=== PATIENT | female | born 1995 | race Caucasian/White ===

== ENCOUNTER 2017-08-05 23:49 | Emergency (ER) | payer SELFPAY ==
[~2017-08-05] VITALS: Ht 154.9 cm; Wt 51.5 kg
[~2017-08-05 23:49] MED LIST: Z.0.NO CURRENT MEDS
[2017-08-06 00:08] VITALS: BP 132/63; PULSE 107; RESP 18; TEMP 99.1; O2SAT 99
[2017-08-06 02:27] VITALS: BP 133/64; PULSE 81; RESP 20; O2SAT 96
[2017-08-06] MEDS ORDERED: SODIUM CHLOR 0.9% 1000 ML INJ 1,000 ML IV ONE (02:30)
[2017-08-06] MEDS ORDERED: ONDANSETRON HCL 4 MG/2 ML VIAL IV PUSH ONE (02:30)
[2017-08-06 02:52] LABS: AUTOMATED NEUTROPHIL # 6.6 TH/MM3 (1.8-7.7); BASOPHIL % 0.1 % (0.0-2.0); HEMATOCRIT 40.2 % (35.0-46.0); HEMOGLOBIN 14.1 GM/DL (11.6-15.3); LYMPH % 4.2 % (9.0-44.0); LYMPHOCYTE # 0.3 TH/MM3 (1.0-4.8); MEAN CELL VOLUME 90.1 FL (80.0-100.0); MEAN CORPUSCULAR HEMOGLOBIN 31.5 PG (27.0-34.0); MEAN PLATELET VOLUME 9.2 FL (7.0-11.0); MONO % 6.4 % (0.0-8.0); MONOCYTE # 0.5 TH/MM3 (0-0.9); NEUT % 89.3 % (16.0-70.0); PLATELET COUNT 242 TH/MM3 (150-450); RED BLOOD COUNT 4.47 MIL/MM3 (4.00-5.30); RED CELL DISTRIBUTION WIDTH 12.2 % (11.6-17.2); WHITE BLOOD COUNT 7.4 TH/MM3 (4.0-11.0)
[2017-08-06 03:08] LABS: ALBUMIN 4.3 GM/DL (3.4-5.0); ALT (GPT) 27 U/L (9-42); AST (GOT) 28 U/L (16-38); BLOOD UREA NITROGEN 7 MG/DL (7-18); CALCIUM 9.4 MG/DL (8.5-10.1); CHLORIDE 105 MEQ/L (98-107); GLOMERULAR FILTRATION RATE 81 ML/MIN (>89); GLUCOSE,RANDOM 112 MG/DL (74-106); SODIUM (NA) 136 MEQ/L (136-145)
[2017-08-06 03:10] LABS: ALKALINE PHOSPHATASE 72 U/L (45-117); TOTAL BILIRUBIN ADULT 0.4 MG/DL (0.2-1.0); TOTAL PROTEIN 8.6 GM/DL (6.4-8.2)
[2017-08-06] MEDS ORDERED: KETOROLAC TROMETHAMINE 30 MG/ML (IVP) VIAL IV PUSH ONE (03:15)
[2017-08-06] MEDS ORDERED: OSELTAMIVIR PHOSPHATE 75 MG CAP PO ONE (03:15)
[2017-08-06] MEDS ORDERED: OSEL75 PO (03:49)
[2017-08-06] MEDS ORDERED: ZOFR4TAB3 SL (03:49)
--- NOTE | 2017-08-06 03:49 | PD ---
HPI . GI complaint Chief Complaint: GI Complaint Time Seen by Provider: 02:22 Travel History International Travel<30 days: No Contact w/Intl Traveler<30days: No Traveled to known affect area: No History of Present Illness HPI 21-year-old female presents with having mild nonproductive cough, feeling fevers unquantified, and nausea vomiting all day today. Patient is not tolerating p.o. since earlier. Denies rashes stiff neck visual changes seizures. Patient thinks she has the flu PFSH Past Medical History Narrative Medical No significant past medical history Medical History: Denies Significant Hx Immunizations Current: Yes ?: Not Past Surgical History Surgical History: No Previous Surgery Social History Alcohol Use: No Tobacco Use: No Substance Use: No Allergies-Medications (Allergen,Severity, Reaction): Coded Allergies: Sulfa (Sulfonamide Antibiotics) (Verified Allergy, Intermediate, Rash, 08/06) No Known Allergies (Verified Allergy, Mild, 08/06/17) Reported Meds & Prescriptions Reported Meds & Active Scripts Active No Active Prescriptions or Reported Medications Narrative Medication Allergies and medications reviewed Review of Systems Except as stated in HPI: all other systems reviewed are Neg General / Constitutional: Positive: Fever, Chills Eyes: No: Visual changes HENT: No: Headaches, Vertigo, Sore Throat Cardiovascular: No: Chest Pain or Discomfort, Palpitations Respiratory: Positive: Cough, No: Shortness of Breath, Wheezing, Sneezing, Orthopnea, Hemoptysis, Stridor, Night Sweats, Pleuritic Pain Gastrointestinal: Positive: Nausea, Vomiting, No: Diarrhea, Abdominal Pain Genitourinary: No: Urgency, Frequency, Dysuria, Hematuria, Discharge, Vaginal Bleeding Musculoskeletal: No: Pain Skin: No Rash Neurologic: No: Weakness Psychiatric: No: Depression Endocrine: No: Polydipsia Hematologic/Lymphatic: No: Easy Bruising Physical Exam Narrative GENERAL: Awake alert, oriented 3, ill-appearing but in no acute distress. Vital signs afebrile normal and stable SKIN: Warm and dry. Color is sallow no diaphoresis sinus or pallor HEAD: Atraumatic. Normocephalic. EYES: Pupils equal and round. No scleral icterus. No injection or drainage. ENT: No nasal bleeding or discharge. Mucous membranes pink and moist. Lips dry NECK: Trachea midline. No JVD. Supple nontender full range of motion CARDIOVASCULAR: Regular rate and rhythm. S1-S2 no murmurs rubs gallops RESPIRATORY: No accessory muscle use. Clear to auscultation. Breath sounds equal bilaterally. GASTROINTESTINAL: Abdomen soft, non-tender, nondistended. Hepatic and splenic margins not palpable. MUSCULOSKELETAL: Extremities without clubbing, cyanosis, or edema. No obvious deformities. NEUROLOGICAL: Awake and alert. No obvious focal deficits PSYCHIATRIC: Appropriate mood and affect; insight and judgment normal. Data Data Last Documented VS Vital Signs Date Time Temp Pulse Resp B/P (MAP) Pulse Ox O2 Delivery O2 Flow Rate FiO2 08/06/17 02:27 81 20 133/64 (87) 96 Room Air 08/06/17 00:08 99.1 Orders Orders Influenzae A/B Antigen (08/06/17 02:23) Iv Access Insert/Monitor (08/06/17 02:25) Sodium Chlor 0.9% 1000 Ml Inj (Ns 1000 M (08/06/17 02:30) Ondansetron Inj (Zofran Inj) (08/06/17 02:30) Complete Blood Count With Diff (08/06/17 02:30) Comprehensive Metabolic Panel (08/06/17 02:30) Ed Urine Pregnancytest Poc (08/06/17 02:30) Ketorolac Inj (Toradol Inj) (08/06/17 03:15) Oseltamivir (Tamiflu) (08/06/17 03:15) Labs Laboratory Tests Test 08/06/17 02:30 White Blood Count 7.4 TH/MM3 Red Blood Count 4.47 MIL/MM3 Hemoglobin 14.1 GM/DL Hematocrit 40.2 % Mean Corpuscular Volume 90.1 FL Mean Corpuscular Hemoglobin 31.5 PG Mean Corpuscular Hemoglobin Concent 35.0 % Red Cell Distribution Width 12.2 % Platelet Count 242 TH/MM3 Mean Platelet Volume 9.2 FL Neutrophils (%) (Auto) 89.3 % Lymphocytes (%) (Auto) 4.2 % Monocytes (%) (Auto) 6.4 % Eosinophils (%) (Auto) 0.0 % Basophils (%) (Auto) 0.1 % Neutrophils # (Auto) 6.6 TH/MM3 Lymphocytes # (Auto) 0.3 TH/MM3 Monocytes # (Auto) 0.5 TH/MM3 Eosinophils # (Auto) 0.0 TH/MM3 Basophils # (Auto) 0.0 TH/MM3 CBC Comment DIFF FINAL Differential Comment Blood Urea Nitrogen 7 MG/DL Creatinine 0.90 MG/DL Random Glucose 112 MG/DL Total Protein 8.6 GM/DL Albumin 4.3 GM/DL Calcium Level 9.4 MG/DL Alkaline Phosphatase 72 U/L Aspartate Amino Transf (AST/SGOT) 28 U/L Alanine Aminotransferase (ALT/SGPT) 27 U/L Total Bilirubin 0.4 MG/DL Sodium Level 136 MEQ/L Potassium Level 3.4 MEQ/L Chloride Level 105 MEQ/L Carbon Dioxide Level 15.0 MEQ/L Anion Gap 16 MEQ/L Estimat Glomerular Filtration Rate 81 ML/MIN [facility] Medical Decision Making Medical Screen Exam Complete: Yes Emergency Medical Condition: Yes Medical Record Reviewed: Yes Differential Diagnosis Influenza, viral syndrome, dehydration Narrative Course Influenza positive. Patient given IV fluids, antiemetics, antipyretics/anti- inflammatories IV with significant improvement in symptoms. Patient is tolerating p.o. easily and well at discharge. Feels greatly improved Diagnosis Primary Impression: Influenza Patient Instructions: General Instructions, Influenza (DC) Additional Instructions: Drink plenty of fluids. Tamiflu 75 mg twice daily for 5 days. Zofran 4 mg under the tongue dissolvable every 8 hours as needed for nausea/vomiting. Follow[facility]up with [facility]/your doctor. Return promptly for worsening Scripts Ondansetron Odt (Zofran Odt) 4 Mg Tab 4 MG SL Q8HR Y for Nausea/Vomiting, #20 TAB 0 Refills Prov: Desean Velasquez MD 08/06/17 Oseltamivir (Tamiflu) 75 Mg Cap 75 MG PO BID for Mgmt Viral Infection, #10 CAP 0 Refills Prov: Desean Velasquez MD 08/06/17 Disposition: DISCHARGE HOME Condition: Stable Desean Velasquez MD Aug 06, 2017 03:49
== END 2017-08-06 04:21 | disposition home or self-care (01) ==
LOC: NEPE 23:49
DX: J11.1 Influenza due to unidentified influenza virus with other respiratory manifestations (principal)
CPT/HCPCS: 80053; 84703; 85025; 87804; 96374; 96375; 99284; J1885; J2405; J7030

== ENCOUNTER 2017-10-13 22:11 | Emergency (ER) | payer SELFPAY ==
[~2017-10-13 22:11] MED LIST changes: +OSEL75 PO; -Z.0.NO CURRENT MEDS; +ZOFR4TAB3 SL
[2017-10-13 22:20] VITALS: BP 126/81; PULSE 74; RESP 18; TEMP 99; O2SAT 100
[2017-10-13] MEDS ORDERED: SODIUM CHLOR 0.9% 1000 ML INJ 1,000 ML IV ONE (22:45)
--- NOTE | 2017-10-13 22:46 | PD ---
HPI Chief Complaint: GI Complaint Time Seen by Provider: 22:41 Travel History International Travel<30 days: No Contact w/Intl Traveler<30days: No Traveled to known affect area: No History of Present Illness HPI The patient is a 22 year old female who presents to the [facility] emergency department with a history of noticing blood on the toilet paper after she wiped on Friday. She reports that it was after having a bowel movement. She then looked in the toilet and there was a significant amount of blood also noted in the toilet. She denies having any associated diarrhea. She denies her bowel movement being larger than usual or hard. She denies having any rectal pain or swelling. She denies having anal intercourse. She reports that on Friday and Friday she moved her bowels normally without blood, however today the rectal bleeding recurred. She reports that she has had 3 bowel movements today, 2 of which had blood mixed into the stool. She denies any family history of colon disorders. She denies having any abdominal pain. She denies having any nausea or vomiting. She denies having any chest pain, chest pressure, shortness of breath, or lightheaded sensation. On review of systems otherwise, the patient denies having any recent fevers, cough or congestion, neck pain, urinary symptoms, or neurologic symptoms. The patient reports that she normally moves her bowels once per day. She denies having any prior history of GI bleed. LMP: A week ago. The patient is currently on an oral contraceptive. PFSH Past Medical History Narrative Medical The patient's past medical history is reportedly none. Medical History: Denies Significant Hx Immunizations Current: Yes ?: Not LMP: 10/11/17 Past Surgical History Surgical History: No Previous Surgery Social History Alcohol Use: No Tobacco Use: Yes (2 black and mild cigarettes daily) Substance Use: No Allergies-Medications (Allergen,Severity, Reaction): Coded Allergies: Sulfa (Sulfonamide Antibiotics) (Verified Allergy, Intermediate, Rash, ) Reported Meds & Prescriptions Reported Meds & Active Scripts Active Narrative Medication The patient is currently on an oral contraceptive Review of Systems Except as stated in HPI: all other systems reviewed are Neg General / Constitutional: No: Fever Eyes: No: Visual changes HENT: No: Headaches Cardiovascular: No: Chest Pain or Discomfort Respiratory: No: Shortness of Breath Gastrointestinal: Positive: Hematochezia, No: Nausea, Vomiting, Diarrhea, Abdominal Pain, Hematemesis, Changes in Bowel Habits, Loss of Appetite Genitourinary: No: Dysuria Musculoskeletal: No: Pain Skin: No Rash Neurologic: No: Weakness Psychiatric: No: Depression Endocrine: No: Polydipsia Hematologic/Lymphatic: No: Easy Bruising Physical Exam Narrative General: The patient is a well-developed well-nourished female in no acute distress. Head and Neck exam: Head is normocephalic atraumatic. Eyes: EOMI, pupils are equal round and reactive to light. Nose: Midline septum with pink mucous membranes Mouth: Dentition unremarkable. Moist mucus membranes. Posterior oropharynx is not erythematous. No tonsillar hypertrophy. Uvula midline. Airway patent. Neck: No palpable lymphadenopathy. No nuchal rigidity. No thyromegaly. Cardiovascular: Regular rate and rhythm without murmurs, gallops, or rubs. No pulse deficit to the extremities on simultaneous auscultation and palpation of her radial artery. Lungs: Clear to auscultation bilaterally. No wheezes, rhonchi, or rales. Abdomen: Soft, without tenderness to palpation in all 4 quadrants of the abdomen. No guarding, rebound, or rigidity. Normal bowel sounds are audible. No tenderness on palpation of McBurney's point. Negative Vale sign. Extremities: No clubbing, cyanosis, or edema. 2+ pulses in all 4 extremities. No calf tenderness on palpation. Back: No spinous process tenderness to palpation. No costovertebral angle tenderness to palpation. Neurologic Exam: Grossly nonfocal. Skin Exam: No rash noted. Intact skin that is warm and dry. RECTAL EXAM: No masses or tenderness, however there appeared to be some inflammation at the 12 o'clock position on examination of her rectum, no significant stool in the rectal vault. No anal fissures noted. No hemorrhoids noted. Mucus was Hemoccult negative. Data Data Last Documented VS Vital Signs Date Time Temp Pulse Resp B/P (MAP) Pulse Ox O2 Delivery O2 Flow Rate FiO2 10/13/17 23:03 100 Room Air 10/13/17 22:20 99.0 74 18 126/81 (96) Orders Orders Complete Blood Count With Diff (10/13/17 22:41) Comprehensive Metabolic Panel (10/13/17 22:41) Prothrombin Time / Inr (Pt) (10/13/17 22:41) Act Partial Throm Time (Ptt) (10/13/17 22:41) C-Reactive Protein (Crp) (10/13/17 22:41) Lipase (10/13/17 22:41) Urinalysis - C+S If Indicated (10/13/17 22:41) Westergren Sedimentation Rate (10/13/17 22:41) Iv Access Insert/Monitor (10/13/17 22:41) Ecg Monitoring (10/13/17 22:41) Oximetry (10/13/17 22:41) Ed Urine Pregnancytest Poc (10/13/17 22:41) Sodium Chlor 0.9% 1000 Ml Inj (Ns 1000 M (10/13/17 22:45) Labs Laboratory Tests Test 10/13/17 22:46 10/13/17 22:48 White Blood Count 7.2 TH/MM3 Red Blood Count 4.60 MIL/MM3 Hemoglobin 14.3 GM/DL Hematocrit 41.6 % Mean Corpuscular Volume 90.5 FL Mean Corpuscular Hemoglobin 31.0 PG Mean Corpuscular Hemoglobin Concent 34.3 % Red Cell Distribution Width 12.7 % Platelet Count 365 TH/MM3 Mean Platelet Volume 8.8 FL Neutrophils (%) (Auto) 45.4 % Lymphocytes (%) (Auto) 45.8 % Monocytes (%) (Auto) 7.8 % Eosinophils (%) (Auto) 0.5 % Basophils (%) (Auto) 0.5 % Neutrophils # (Auto) 3.3 TH/MM3 Lymphocytes # (Auto) 3.3 TH/MM3 Monocytes # (Auto) 0.6 TH/MM3 Eosinophils # (Auto) 0.0 TH/MM3 Basophils # (Auto) 0.0 TH/MM3 CBC Comment DIFF FINAL Differential Comment Erythrocyte Sedimentation Rate 6 mm/hr Prothrombin Time 10.5 SEC Prothromb Time International Ratio 1.0 RATIO Activated Partial Thromboplast Time 30.0 SEC Blood Urea Nitrogen 9 MG/DL Creatinine 0.82 MG/DL Random Glucose 85 MG/DL Total Protein 8.2 GM/DL Albumin 4.2 GM/DL Calcium Level 9.3 MG/DL Alkaline Phosphatase 76 U/L Aspartate Amino Transf (AST/SGOT) 12 U/L Alanine Aminotransferase (ALT/SGPT) 17 U/L Total Bilirubin 0.3 MG/DL Sodium Level 142 MEQ/L Potassium Level 3.6 MEQ/L Chloride Level 106 MEQ/L Carbon Dioxide Level 26.8 MEQ/L Anion Gap 9 MEQ/L Estimat Glomerular Filtration Rate 89 ML/MIN C-Reactive Protein LESS THAN 0.29 MG/DL Lipase 120 U/L Urine Color COLORLESS Urine Turbidity CLEAR Urine pH 7.5 Urine Specific [place] 1.004 Urine Protein NEG mg/dL Urine Glucose (UA) NEG mg/dL Urine Ketones NEG mg/dL Urine Occult Blood NEG Urine Nitrite NEG Urine Bilirubin NEG Urine Urobilinogen LESS THAN 2.0 MG/DL Urine Leukocyte Esterase NEG Urine RBC LESS THAN 1 /hpf Urine WBC LESS THAN 1 /hpf Urine Squamous Epithelial Cells 1 /hpf Microscopic Urinalysis Comment CULT NOT INDICATED MDM Medical Decision Making Medical Screen Exam Complete: Yes Emergency Medical Condition: Yes Medical Record Reviewed: Yes Differential Diagnosis Anal fissure, versus hemorrhoid, versus AVM, versus diverticulosis, versus inflammatory bowel disease Narrative Course During the course of the patient's emergency department visit, the patient's history, examination, and differential diagnosis were reviewed with the patient. The patient was placed on a electronic device monitor with oximetry and frequent blood pressure monitoring. The patient had IV access obtained and blood work sent for analysis. A bedside test was negative. The patient was initially provided normal saline 1 L IV fluid bolus. The patient's laboratory studies were reviewed and remarkable for a CBC reveals a normal white count at 7.2 with a normal hemoglobin at 14.3, platelets 365, lymphocytes 45.8, sedimentation rate is within normal limits at 6, CMP is remarkable for an AST of 12, C-reactive protein is less than 0.29, lipase 120, PT 10.5, PTT 30, urinalysis within normal limits. The patient's abdominal examination is benign, therefore imaging is not indicated at this time. The patient has no evidence of rectal bleeding at this time, however she did have some anal irritation noted at the 12 o'clock position. This could be a healing superficial anal fissure. The patient was instructed to increase the fiber in her diet, push fluids. The patient was instructed that if she continues to have symptoms she should follow-up with the fire lookout for anoscopy versus colonoscopy. The patient was agreeable with this plan. The patient was instructed that if she develops any new or worsening signs or symptoms, she should report back immediately to the emergency department. The patient is resting comfortably and feels better, is alert and in no distress. The patient's results and examination findings were discussed with the patient. The repeat examination is unremarkable and benign. The history, exam, diagnostic testing, and current condition do not suggest any significant pathology to warrant further testing, continued ED treatment, admission, or surgical evaluation at this point. The vital signs have been stable. The patient does not have uncontrollable pain, intractable vomiting, or other significant symptoms. The patient's condition is stable and appropriate for discharge. The patient will pursue further outpatient evaluation with a primary care physician or other designated or consulting physician as indicated in the discharge instructions. The patient expressed understanding and was agreeable with this plan. [employer] Point of Care Internal Pos. & Neg. Controls: Passed Fecal Specimen Occult Blood: Negative Diagnosis Primary Impression: Bright red blood per rectum Referrals: Tiffani Sage MD 2 weeks [facility] 3 days Additional Instructions: The patient was instructed to increase the fiber in her diet, push fluids. The patient was instructed that if she continues to have symptoms she should follow- up with the fire lookout for anoscopy versus colonoscopy. The patient was agreeable with this plan. The patient was instructed that if she develops any new or worsening signs or symptoms, she should report back immediately to the emergency department. Med/Other Pt SpecificInfo: No Change to Meds Disposition: 01 DISCHARGE HOME Condition: Stable Elda Olmedo MD October 13, 2017 22:46
[2017-10-13 23:03] VITALS: O2SAT 100
[2017-10-13 23:09] LABS: AUTOMATED NEUTROPHIL # 3.3 TH/MM3 (1.8-7.7); BASOPHIL % 0.5 % (0.0-2.0); EOSINOPHIL % 0.5 % (0.0-4.0); HEMATOCRIT 41.6 % (35.0-46.0); HEMOGLOBIN 14.3 GM/DL (11.6-15.3); LYMPH % 45.8 % (9.0-44.0); LYMPHOCYTE # 3.3 TH/MM3 (1.0-4.8); MEAN CELL VOLUME 90.5 FL (80.0-100.0); MEAN CORPUSCULAR HGB CONC 34.3 % (32.0-36.0); MEAN PLATELET VOLUME 8.8 FL (7.0-11.0); MONO % 7.8 % (0.0-8.0); MONOCYTE # 0.6 TH/MM3 (0-0.9); NEUT % 45.4 % (16.0-70.0); PLATELET COUNT 365 TH/MM3 (150-450); RED CELL DISTRIBUTION WIDTH 12.7 % (11.6-17.2); WHITE BLOOD COUNT 7.2 TH/MM3 (4.0-11.0)
[2017-10-13 23:25] LABS: PROTHROMBIN TIME - PATIENT 10.5 SEC (9.8-11.6)
[2017-10-13 23:37] LABS: BILIRUBIN, URINE NEG (NEG); BLOOD, URINE NEG (NEG); GLUCOSE,URINE NEG (NEG); KETONE, URINE NEG (NEG); NITRITE,URINE NEG (NEG); PH, URINE 7.5 (5.0-8.5); SQUAMOUS EPITHELIAL CELL URINE 1 /hpf (0-5); URINE COLOR COLORLESS (YELLW/STRAW); URINE LEUKOCYTE ESTERASE NEG (NEG)
[2017-10-13 23:38] LABS: ALBUMIN 4.2 GM/DL (3.4-5.0); ALT (GPT) 17 U/L (9-42); AST (GOT) 12 U/L (16-38); BICARBONATE 26.8 MEQ/L (21.0-32.0); BLOOD UREA NITROGEN 9 MG/DL (7-18); C-REACTIVE PROTEIN LESS THAN 0.29 MG/DL (0.00-0.30); CALCIUM 9.3 MG/DL (8.5-10.1); CHLORIDE 106 MEQ/L (98-107); CREATININE 0.82 MG/DL (0.50-1.00); GLOMERULAR FILTRATION RATE 89 ML/MIN (>89); GLUCOSE,RANDOM 85 MG/DL (74-106); SODIUM (NA) 142 MEQ/L (136-145)
[2017-10-13 23:40] LABS: ALKALINE PHOSPHATASE 76 U/L (45-117); TOTAL BILIRUBIN ADULT 0.3 MG/DL (0.2-1.0); TOTAL PROTEIN 8.2 GM/DL (6.4-8.2)
== END 2017-10-14 00:33 | disposition home or self-care (01) ==
LOC: NEPE 22:11
DX: K62.5 Hemorrhage of anus and rectum (principal); F17.210 Nicotine dependence, cigarettes, uncomplicated
CPT/HCPCS: 80053; 81001; 83690; 84703; 85025; 85610; 85652; 85730; 86140; 96360; 99284; J7030